=== PATIENT | male | born 2000 | race Caucasian/White ===

== ENCOUNTER 2021-04-02 08:31 | Emergency (ER) | payer OTHER ==
[~2021-04-02] VITALS: Ht 182.9 cm; Wt 81.9 kg
[2021-04-02 08:31] VITALS: BP 133/63
[2021-04-02] MEDS ORDERED: TRIA1CR80 TOP (09:20)
== END 2021-04-02 09:34 | disposition home or self-care (01) ==
LOC: M ED 08:31
DX: L29.9 Pruritus, unspecified (principal); S20.96XA Insect bite (nonvenomous) of unspecified parts of thorax, initial encounter; S80.861A Insect bite (nonvenomous), right lower leg, initial encounter; S80.862A Insect bite (nonvenomous), left lower leg, initial encounter; W57.XXXA Bitten or stung by nonvenomous insect and other nonvenomous arthropods, initial encounter; Y92.89 Other specified places as the place of occurrence of the external cause

== ENCOUNTER → 2023-03-21 | Outpatient (CLI) | payer OTHER ==
[~2023-03-21] MED LIST: ISOVUE-300 61% 100ML VIAL As Ordered ONE; LIDOCAINE 1% MDV 20ML VIAL As Ordered ONE; PROHANCE 279.3MG/ML 5ML VIAL As Ordered ONE; TRIA1CR80 TOP
== END ==
LOC: M RAD 06:33
PROVIDERS: ATTEND Physical Therapist
DX: M25.512 Pain in left shoulder (principal)
CPT/HCPCS: 23350; 73223; 77002; A9576; Q9967